=== PATIENT | female | born 1955 | race Caucasian/White ===

== ENCOUNTER 2021-06-05 14:42 | Inpatient (IN) | payer OTHER ==
[~2021-06-05] VITALS: Ht 167.6 cm; Wt 89.8 kg
[2021-06-05 19:00] VITALS: BP 124/80
[2021-06-05 19:30] VITALS: BP 107/76
[2021-06-05 20:00] VITALS: BP 109/71
[2021-06-05 20:05] LABS: HEMATOCRIT 35.5 % (37.0-47.0); HEMOGLOBIN 11.8 gm/dL (12.0-15.0); MCH 26.6 pg (26.0-34.0); MCHC 33.2 g/dL (28.0-37.0); RBC 4.44 mil/uL (4.20-5.00); RDW 15.1 % (10.5-14.5); WBC 8.2 thou/uL (4.0-11.0)
[2021-06-05 20:18] LABS: INR 1.1; PROTIME 11.9 Seconds (10.5-12.1)
[2021-06-05 21:00] VITALS: BP 104/67
[2021-06-05 22:00] VITALS: BP 104/72
[2021-06-05] MEDS ORDERED: HYDROCHLOROTHIA25 M1 PO (22:54)
[2021-06-05] MEDS ORDERED: LISINOPRIL10 MG PO (22:54)
[2021-06-05] MEDS ORDERED: KLOR-CON 1010 MEQ PO (22:55)
[2021-06-05] MEDS ORDERED: FISH OIL 1,001000 M3 PO (22:56)
[2021-06-05 23:00] VITALS: BP 109/65
[2021-06-06 00:01] VITALS: BP 106/65
[2021-06-06 03:50] VITALS: BP 99/61
[2021-06-06 09:45] LABS: HEMATOCRIT 36.6 % (37.0-47.0); HEMOGLOBIN 11.7 gm/dL (12.0-15.0); MCH 26.2 pg (26.0-34.0); MCV 81.8 fL (80.0-100.0); RBC 4.47 mil/uL (4.20-5.00); RDW 15.3 % (10.5-14.5); WBC 8.5 thou/uL (4.0-11.0)
[2021-06-06 10:18] VITALS: BP 102/66
[2021-06-06 13:06] VITALS: BP 102/62
[2021-06-06 16:00] VITALS: BP 102/62; BP 92/56
--- NOTE | 2021-06-06 18:42 | NUR ---
PT UP TO CHAIR FOR MOST OF THE SHIFT AND HAD 1 VISITOR. PT REMIAINS ON HEPARIN DRIP THAT WAS TITRATED PER PROTOCAL TO 11.8ML AND IS NOW THERAPEUTIC. GROIN SITE CHECKED MULTIPLE TIMES THROUGHOUT TODAYS SHIFT AND REMAINS INTACT WITHOUT REDNESS, AND HEMATOMA.
[2021-06-06 19:13] VITALS: BP 115/66
[2021-06-07 03:31] VITALS: BP 101/65
--- NOTE | 2021-06-07 08:19 | NUR ---
ASSUMED PT CARE AT 1900, ALERT AND ORIENTEDX4, SR/BBB ON TELE, DENIES PAIN OR SOB, REMAINS ON HEPARIN GTT, PTT THERAPEUTIC, NO CHANGES MADE, ASSESSMENTS CHARTED, REMAINS ON 4L OF O2, NO ACUTE EVENTS THIS SHIFT, REPORT GIVEN TO DAY SHIFT RN
[2021-06-07 08:40] VITALS: BP 90/68
[2021-06-07 11:18] VITALS: BP 95/54
[2021-06-07 15:25] VITALS: BP 105/58
--- NOTE | 2021-06-07 17:54 | NUR ---
PT HAS BEEN PLEASANT THROUGHOUT THE SHIFT. PT HEPARIN WAS DC'ED AND STARTED ON XARELTO. PT DENIES ANY PAIN, N/V, OR SOA.
[2021-06-07 20:41] VITALS: BP 102/60
[2021-06-08 04:46] LABS: HEMATOCRIT 31.1 % (37.0-47.0); HEMOGLOBIN 10.1 gm/dL (12.0-15.0); MCH 26.2 pg (26.0-34.0); MCHC 32.5 g/dL (28.0-37.0); MCV 80.6 fL (80.0-100.0); RBC 3.86 mil/uL (4.20-5.00); WBC 8.2 thou/uL (4.0-11.0)
[2021-06-08 05:00] VITALS: BP 118/75
[2021-06-08 09:13] VITALS: BP 104/68
[2021-06-08] MEDS ORDERED: XARELTO20 MG PO (12:43)
[2021-06-08] MEDS ORDERED: XARELTO15 MG PO (12:43)
[2021-06-08 12:50] VITALS: BP 127/79
[2021-06-08 13:36] VITALS: BP 127/79
--- NOTE | 2021-06-08 14:10 | 2DMMODE ---
[facility] [place] [address] 2 D/M-MODE ECHOCARDIOGRAM Name: BRITTANY CARPIO Room #: 218-P ADM IN M.R.#: [id number] Admission: 06/05/21 Attend Phys: Harjit Khan MD, Discharge: Date of : 51 Report #: [id number] THIS REPORT FOR: cc: FAM - Family physician unknown FAM - Family physician unknown Harjit Khan MD [facility] ~ APPROVED REPORT Study performed: 06/08/2021 13:08:27 EXAM: Comprehensive 2D, Doppler, and color-flow Echocardiogram Patient Location: Bedside Room #: 218 Status: routine BSA: 2.00 HR: 70 bpm BP: 127/79 mmHg Rhythm: NSR Other Information Study Quality: Adequate/obesity Indications Bilateral pulmonary embolism; S/P embolectomy. 2D Dimensions RVDd: 35.34 mm IVSd: 10.54 (7-11mm) LVDd: 39.09 mm PWd: 11.07 (7-11mm) Ascending Ao: 29.77 (22-36mm) LVDs: 21.07 (25-40mm) Left Atrium: 29.19 (27-40mm) Aortic Root: 32.02 mm Volumes Left Atrial Volume (Systole) Single Plane 4CH: 32.47 mL Single Plane 2CH: 48.05 mL LA ESV Index: 21.00 mL/m2 Aortic Valve AoV Peak Jimi.: 2.08 m/s AO Peak Gr.: 17.38 mmHg LVOT Max P.34 mmHg LVOT Max V: 1.68 m/s [facility] [address] [place] [address] 2 D/M-MODE ECHOCARDIOGRAM Name: BRITTANY CARPIO Room #: 218-P [facility] IN ..#: [id number] Admission: 06/05/21 Attend Phys: Harjit Khan, Discharge: Date of : 51 Report #: [id number] Mitral Valve E/A Ratio: 0.9 MV Decel. Time: 301.72 ms MV E Max Jimi.: 0.77 m/s MV A Jimi.: 0.89 m/s MV PHT: 87.50 ms IVRT: 79.58 ms Pulmonary Valve PV Peak Jimi.: 1.13 m/s PV Peak Gr.: 5.11 mmHg Pulmonary Vein P Vein S: 0.46 m/s P Vein A: 0.26 m/s P Vein D: 0.44 m/s P Vein A Dur.: 124.6 msec P Vein S/D Ratio: 1.05 Tricuspid Valve TR Peak Jimi.: 3.22 m/s RAP Estimate: 5.00 mmHg TR Peak Gr.: 41.44 mmHg PA Pressure: 46.00 mmHg Left Ventricle The left ventricle is normal size. There is normal LV segmental wall motion. There is normal left ventricular wall thickness. Left ventricular systolic function is normal. LVEF is 65%. Mild diastolic dysfunction is present (impaired relaxation pattern). Right Ventricle The right ventricle is normal size. The right ventricular systolic function is normal. Atria The left atrium size is normal. The right atrium size is normal. Aortic Valve The aortic valve is normal in structure. Trace aortic regurgitation. There is no aortic valvular stenosis. Mitral Valve The mitral valve is normal in structure. Mild mitral annular calcification. There is no mitral valve regurgitation noted. No evidence of mitral valve stenosis. Tricuspid Valve The tricuspid valve is normal in structure. Mild to moderate [facility] [address] [address] 2 D/M-MODE ECHOCARDIOGRAM Name: BRITTANY CARPIO Room #: 218-P ADM IN M.R.#: [id number] Admission: 06/05/21 Attend Phys: Harjit Khan, Discharge: Date of : 51 Report #: [id number] tricuspid regurgitation. Estimated PAP is 46mmHg. Pulmonic Valve The pulmonary valve is normal in structure. Trace pulmonic regurgitation. Great Vessels The aortic root is normal in size. The ascending aorta is normal in size. IVC is normal in size and collapses >50% with inspiration. Pericardium There is no pericardial effusion. <Conclusion> The left ventricle is normal size. LVEF is 65%. Mild diastolic dysfunction is present (impaired relaxation pattern). The right ventricle is normal size. The left atrium size is normal. The aortic valve is normal in structure. The mitral valve is normal in structure. Mild mitral annular calcification. There is no mitral valve regurgitation noted. Mild to moderate tricuspid regurgitation. Estimated PAP is 46mmHg. The aortic root is normal in size. There is no pericardial effusion. <ELECTRONICALLY SIGNED> By: Harjit Khan MD, FACC 06/08/21 1409 1409 140 Harjit Khan MD, FACC /INF
[2021-06-08 14:30] VITALS: BP 127/79
--- NOTE | 2021-06-08 14:30 | NUR ---
DISCIONTINUE IV AND TELE. PT UNDERSTANDS ALL FOLLOW UP ORDERS AND MEDICATION SAMPLES GIVEN TO PT. WILL DISCHARGE TO HOME.
--- NOTE | 2021-06-10 08:42 | H ---
[facility] [place] [address] [address] [place] [address] HISTORY AND PHYSICAL Name: BRITTANY CARPIO Room #: 218-[facility] IN M.R.#: [id number] Admission: 06/05/21 Attend Phys: Harjit Khan MD, Discharge: 06/08/21 Date of : 51 Report #: [id number] THIS REPORT FOR: cc: FAM - Family physician unknown FAM - Family physician unknown Harjit Khan MD [facility] ~ cc: Harvey Mohan DO DATE OF SERVICE: 06/05/2021 HISTORY OF PRESENT ILLNESS: The patient is a 66-year-old female, -[place], who is transferred here from [facility] in [place]. She had presented there with a 2-day history of progressive dyspnea, shortness of breath, but no fever and not felt to be infectious. Subsequent workup revealed a significant right-sided chamber enlargement and a CTA revealing moderate bilateral pulmonary embolism. She was somewhat tachycardic, but hemodynamically, at least systemic pressure was preserved. There is no prior history of clot. She denies travel or being postop, so it is not clear as the etiology of the progression here. She denies any leg swelling. She has had a COVID vaccine, the initial, has not had a repeat and negative for COVID on the rapid test at [facility]. She is moderately dyspneic, on a heparin drip and we will proceed urgently to the catheterization lab. Dr. Miranda of Interventional Radiology is planning pulmonary artery embolectomy. HOME MEDICATIONS: Zyrtec, hydrochlorothiazide, lisinopril 10 and potassium 10. ALLERGIES: No known drug allergies. PAST MEDICAL HISTORY: Positive for hypertension, hypothyroidism, metatarsal fracture, osteoporosis, venous insufficiency with prior venous ulcer of left leg, resolved. PAST SURGICAL HISTORY: Arthroplasty of the knee, DJD, TAHBSO. FAMILY HISTORY: Mother had renal failure. Father also had a history of renal failure and hypertension and a seizure disorder. No premature CAD. SOCIAL HISTORY: No alcohol use. She is retired. No current tobacco use. LABORATORY WORK: BNP was 70. Sodium 141, potassium 3.4, glucose 135. Creatinine 0.85. Lactate slightly elevated at 2.6. Procalcitonin is negative. White count 8, hemoglobin 13.4. PHYSICAL EXAMINATION: VITAL SIGNS: She is moderately dyspneic. Heparin drip is in place. Pulse was 100, blood pressure 160/100. [facility] [address] [place] [address] HISTORY AND PHYSICAL Name: BRITTANY CARPIO Room #: 218-P [facility] IN ..#: [id number] Admission: 06/05/21 Attend Phys: Harjit Khan MD, Discharge: 06/08/21 Date of : 51 Report #: [id number] HEENT: Eyes reveal xanthelasmas. Pharynx is clear. NECK: Shows preserved upstrokes without JVD or bruits. LUNGS: Prolonged expiratory phase anteriorly. CARDIAC: Distant heart tones. Borderline tachycardic. S1, S2, no significant murmur. ABDOMEN: Soft, no HSM, abdominal bruit. EXTREMITIES: Reveal trace of edema. There are venous stasis changes, but no evidence of significant pain. Negative Homans' bilaterally. NEUROLOGIC: Seems to be grossly intact and nonfocal. MUSCULOSKELETAL: Generalized arthritic changes. SKIN: Warm and dry except for the venous insufficiency. No ulcers. ASSESSMENT: 1. Subacute large pulmonary embolism with some hemodynamic compromise. 2. Hypertension. 3. Obesity. 4. Degenerative joint disease. RECOMMENDATIONS AND PLAN: Continue heparin. We will proceed urgently to the catheterization lab for pulmonary angiography and possible thrombectomy of this large submassive pulmonary embolism. Thank you for allowing us to assist in the care of this patient. <ELECTRONICALLY SIGNED> By: Harjit Khan MD, FACC 06/10/21 0842 [id number] [id number] Harjit Khan MD, FACC /nt
== END 2021-06-08 15:50 | disposition home or self-care (01) | DRG 163 ==
LOC: 2N 14:42
PROVIDERS: Nuclear Medicine Nuclear Cardiology; ADMIT Internal Medicine Cardiovascular Disease; ATTEND Internal Medicine Cardiovascular Disease
PROC: B31S1ZZ Fluoroscopy of Right Pulmonary Artery using Low Osmolar Contrast (ICD-10-PCS; principal; 2021-06-05)
PROC: 5A0935A Assistance with Respiratory Ventilation, Less than 24 Consecutive Hours, High Flow/Velocity Cannula (ICD-10-PCS; principal; 2021-06-05)
PROC: 4A023N6 Measurement of Cardiac Sampling and Pressure, Right Heart, Percutaneous Approach (ICD-10-PCS; principal; 2021-06-05)
PROC: 02CQ3ZZ Extirpation of Matter from Right Pulmonary Artery, Percutaneous Approach (ICD-10-PCS; principal; 2021-06-05)
PROC: B31T1ZZ Fluoroscopy of Left Pulmonary Artery using Low Osmolar Contrast (ICD-10-PCS; principal; 2021-06-05)
PROC: 02CP3ZZ Extirpation of Matter from Pulmonary Trunk, Percutaneous Approach (ICD-10-PCS; principal; 2021-06-05)
PROC: 02CR3ZZ Extirpation of Matter from Left Pulmonary Artery, Percutaneous Approach (ICD-10-PCS; principal; 2021-06-05)
DX: I26.99 Other pulmonary embolism without acute cor pulmonale (principal); J96.20 Acute and chronic respiratory failure, unspecified whether with hypoxia or hypercapnia; D68.69 Other thrombophilia; E78.00 Pure hypercholesterolemia, unspecified; E03.9 Hypothyroidism, unspecified; M81.0 Age-related osteoporosis without current pathological fracture; Z96.659 Presence of unspecified artificial knee joint; E66.9 Obesity, unspecified; M19.90 Unspecified osteoarthritis, unspecified site; I87.2 Venous insufficiency (chronic) (peripheral); I50.9 Heart failure, unspecified; I11.0 Hypertensive heart disease with heart failure; Z79.899 Other long term (current) drug therapy; Z84.1 Family history of disorders of kidney and ureter; Z90.722 Acquired absence of ovaries, bilateral; Z68.32 Body mass index [BMI] 32.0-32.9, adult
CPT/HCPCS: 10081